=== PATIENT | male | born 1985 | race Caucasian/White ===

== ENCOUNTER → 2017-05-19 | Outpatient (CLI) | payer OTHER, BC ==
[~2017-05-19] MED LIST: NAPR-243 PO; TRM50T PO
--- NOTE | 2017-05-19 12:46 | Diagnostic Imaging Report ---
PROCEDURE: MRI right joint upper extremity without contrast. TECHNIQUE: A multiplanar/multisequence noncontrast enhanced MRI of the right upper extremity was accomplished. INDICATION: Posterior elbow pain. COMPARISON: There are no prior studies available for comparison. FINDINGS: Reportedly, the patient has pain along the posterior lateral aspect of the proximal radius and ulna. A marker was placed in the area of concern. There is no abnormal signal arising from the osseous structures or the musculature in this area to suggest an acute abnormality. There is perhaps slightly increased signal in the subcutaneous fat on the axial T2 fat-saturated series. This does suggest mild edema/inflammation. The triceps tendon and the biceps tendon are intact. On the coronal series, there is slightly increased signal within the common extensor tendon. This may be related to mild edema/inflammation. There is no clear evidence for a tear and the lateral ulnar collateral ligament appears to be intact. The ulnar collateral ligament and the common flexor tendon are unremarkable. There is no abnormal signal arising from the osseous structures to suggest bone edema or a fracture and there is no sign of a joint effusion. IMPRESSION: 1. There is no acute bony or muscular abnormality in the area of the patient's pain along the posterior lateral aspect of the elbow joint. 2. The small area of altered signal within the common extensor tendon does suggest mild edema/inflammation. The other major ligaments and tendons are intact. Dictated by: Dictated on workstation # [id number]
== END ==
LOC: RAD 08:46
PROVIDERS: ATTEND Nurse Practitioner Family
DX: M77.01 Medial epicondylitis, right elbow (principal); M77.11 Lateral epicondylitis, right elbow
CPT/HCPCS: 73221

== ENCOUNTER 2018-09-16 02:52 | Emergency (ER) | payer OTHER, BC ==
[~2018-09-16] VITALS: Ht 177.8 cm; Wt 88.5 kg
--- OUTSIDE RECORDS SUMMARY | 2018-09-16 02:58 | XMS REPORT ---
Author Author COLE SOLIS [facility] Address [address] [place] [address] Care Team Providers Care Copy Reader Name Role Phone IRMACOLE Unavailable PROBLEMS Type Condition ICD9-CM Code [id number] Code Onset Dates Condition Status SNOMED Code Problem Major depressive disorder, recurrent, moderate F33.1 Active 69928094 Problem Unspecified mood [affective] disorder F39 Active 62215265 Problem Bipolar II disorder F31.81 Active 69569552 Problem Generalized anxiety disorder F41.1 Active 65503202 Problem PTSD (post-traumatic stress disorder) F43.10 Active 98571796 Problem ADHD, predominantly inattentive type F90.0 Active 04340250 ALLERGIES No Information ENCOUNTERS Encounter Location Date Diagnosis [facility] [id number] [place] [address] Nov, [facility] [id number] [place] [address] Oct, Major depressive disorder, recurrent, moderate F33.1 ; PTSD (post- traumatic stress disorder) F43.10 and ADHD, predominantly inattentive type F90.0 [facility] [id number] [place] [address] Sep, Major depressive disorder, recurrent, moderate F33.1 ; PTSD (post- traumatic stress disorder) F43.10 and ADHD, predominantly inattentive type F90.0 [facility] [id number] [place] [address] Sep, [facility] [id number] [place] [address] Aug, Unspecified mood [affective] disorder F39 ; Posttraumatic stress disorder F43.10 and ADHD (attention deficit hyperactivity disorder), inattentive type F90.0 [facility] [address] [address] July, [facility] [id number] [place] [address] Oct, Posttraumatic stress disorder F43.10 ; ADHD, predominantly inattentive type F90.0 ; Major depressive disorder, recurrent episode, moderate F33.1 and Generalized anxiety disorder F41.1 [facility] [id number] [place] [address] Mar, Adjustment disorder with mixed anxiety and depressed mood F43.23 [facility] [id number] [place] [address] Feb, Bipolar II disorder F31.81 ; PTSD (post-traumatic stress disorder) F43.10 and ADHD, predominantly inattentive type F90.0 [facility] [id number] [place] [address] Feb, Anxiety F41.9 and Chronic post-traumatic stress disorder (PTSD) F43.12 [facility] [id number] [place] [address] Feb, Generalized anxiety disorder 300.02 and Major depressive disorder, recurrent episode, moderate 296.32 [facility] [address] [place] [address] May, [facility] [id number] [place] [address] May, [facility] [address] [place] [address] Apr, [facility] [id number] [place] [address] Apr, [facility] [address] [place] [address] 16 May, 2011 [facility] [id number] [place] [address] May, [facility] [address] [facility] [id number] [place] [address] May, [facility] [address] [facility] [id number] [address] Apr, IMMUNIZATIONS No Known Immunizations SOCIAL HISTORY Never Assessed REASON FOR VISIT Returned call PLAN OF CARE VITAL SIGNS MEDICATIONS Unknown Medications RESULTS No Results PROCEDURES No Known procedures INSTRUCTIONS MEDICATIONS ADMINISTERED No Known Medications MEDICAL (GENERAL) HISTORY Type Description Date Medical History Major depressive disorder, recurrent episode, unspecified Medical History Intermittent explosive disorder Surgical History RT elbow 07/18/2017 Hospitalization History surgeries Hospitalization History vasectomy 2015
--- OUTSIDE RECORDS SUMMARY | 2018-09-16 02:58 | XMS REPORT ---
Author Author [email or web address] Medical Staff Organization [facility] Address [address] [place], [place] [address] Phone [phone] Care Team Providers Care Chain Hooker Name Role Phone JUAN RODRIGUEZ MD PP [phone] Summary purpose TRANSITION OF CARE AUTO GENERATION Chief Complaint and Reason for Visit No authorized Reason for Visit (Admitting Diagnosis) is available for this visit . Problem list No authorized problems tracked for continuity of care are available for this vis it. Encounters No authorized problems tracked for encounter diagnoses are available for this vi sit. Medications No medications recorded for this patient visit Allergies, adverse reactions, alerts Allergen Category Ingredient Status Reaction Severity Onset No known drug allergies No known drug allergies No known drug allergies Confirmed or Verified Immunizations No immunizations recorded for this patient visit Relevant diagnostic tests and/or laboratory data No authorized results are available for this patient visit History of procedures No procedures recorded for this patient visit. Functional status No functional or cognitive status observations are available for this visit. Vital signs No authorized vital signs are available for this visit. Social history No Social History or smoking status observations were recorded for this visit. ( Unknown if ever smoked.) Treatment Plan No treatment plan text is available for this visit. Hospital discharge instructions No discharge instruction text is available for this visit.
--- OUTSIDE RECORDS SUMMARY | 2018-09-16 02:58 | XMS REPORT ---
Author Author COLE SOLIS [facility] Address [address] [place] [address] Care Team Providers Care Air Conditioning Coil Assembler Name Role Phone IRMACOLE Unavailable PROBLEMS Type Condition ICD9-CM Code [id number] Code Onset Dates Condition Status SNOMED Code Problem Major depressive disorder, recurrent, moderate F33.1 Active 58179646 Problem Unspecified mood [affective] disorder F39 Active 85103190 Problem Bipolar II disorder F31.81 Active 60497938 Problem Generalized anxiety disorder F41.1 Active 31364471 Problem PTSD (post-traumatic stress disorder) F43.10 Active 25767117 Problem ADHD, predominantly inattentive type F90.0 Active 12358317 ALLERGIES Substance Reaction Event Type Date Status lavender Unknown Non Drug Allergy Sep, Active ENCOUNTERS Encounter Location Date Diagnosis [facility] [id number] [place] [address] Nov, [facility] [id number] [place] [address] Oct, Major depressive disorder, recurrent, moderate F33.1 ; PTSD (post- traumatic stress disorder) F43.10 and ADHD, predominantly inattentive type F90.0 [facility] [address] [place] [address] Sep, Major depressive disorder, recurrent, moderate F33.1 ; PTSD (post- traumatic stress disorder) F43.10 and ADHD, predominantly inattentive type F90.0 [facility] [address] [place] [address] Sep, [facility] [address] [place] [address] Aug, Unspecified mood [affective] disorder F39 ; Posttraumatic stress disorder F43.10 and ADHD (attention deficit hyperactivity disorder), inattentive type F90.0 [facility] [address] [address] July, [facility] [id number] [place] [address] Oct, Posttraumatic stress disorder F43.10 ; ADHD, predominantly inattentive type F90.0 ; Major depressive disorder, recurrent episode, moderate F33.1 and Generalized anxiety disorder F41.1 [facility] [id number] [place] [address] 07 Mar, 2015 Adjustment disorder with mixed anxiety and depressed mood F43.23 [facility] [id number] [place] [address] 24 Feb, 2015 Bipolar II disorder F31.81 ; PTSD (post-traumatic stress disorder) F43.10 and ADHD, predominantly inattentive type F90.0 [place] [facility] [id number] [place] [address] Feb, Anxiety F41.9 and Chronic post-traumatic stress disorder (PTSD) F43.12 [facility] [id number] [place] [address] Feb, Generalized anxiety disorder 300.02 and Major depressive disorder, recurrent episode, moderate 296.32 [place] [address] [address] May, [facility] [id number] [place] [address] May, [facility] [address] [address] Apr, [facility] [id number] [place] [address] Apr, [facility] [address] [address] May, [facility] [id number] [place] [address] May, [facility] [address] [facility] [id number] [address] May, [facility] [address] [facility] [id number] [place] [address] Apr, IMMUNIZATIONS No Known Immunizations SOCIAL HISTORY Never Assessed REASON FOR VISIT intake-KIRK wright PLAN OF CARE Activity Details Follow Up 4 Weeks Reason: f/u VITAL SIGNS Weight 207.1 lbs 2017-09-11 Heart Rate 60 bpm 2017-09-11 Respiratory Rate 20 2017-09-11 Blood pressure systolic 100 mmHg 2017-09-11 Blood pressure diastolic 80 mmHg 2017-09-11 MEDICATIONS Medication Instructions Dosage Frequency Start Date End Date Duration Status Cyproheptadine HCl 4 MG Orally Once at bedtime 1 tablet Feb, Not-Taking Strattera 25 MG Orally Once a day for two weeks, then 1 tablet twice a day 1 capsule Sep, 30 day(s) Active Latuda 40 MG Orally Once a day with 350 kcal 1 tablet with food Feb, Not-Taking RESULTS No Results PROCEDURES No Known procedures INSTRUCTIONS MEDICATIONS ADMINISTERED No Known Medications MEDICAL (GENERAL) HISTORY Type Description Date Medical History Major depressive disorder, recurrent episode, unspecified Medical History Intermittent explosive disorder Surgical History RT elbow 07/18/2017 Hospitalization History surgeries Hospitalization History vasectomy 2014
--- OUTSIDE RECORDS SUMMARY | 2018-09-16 02:58 | XMS REPORT | Clinical Summary ---
Author Author [facility] Organization [facility] Address Unknown Phone Unavailable Care Team Providers Care Asset Coordinator Name Role Phone Shima Mccoy MD Unavailable Juan Jose Aguirre MD PCP Source Comments Some departments are not documenting in the electronic medical record. If you d o not see the information that you expected, contact Release of Information in [facility] [employer] [employer] Management department at [phone] for further assistan ce in locating additional records.[facility] Allergies No Known Allergies Medications End Date Status Medication Sig Dispensed Refills Start Date Active sertraline (ZOLOFT) 50 mg Take 50 mg by 0 tablet mouth daily. Active Problems Problem Noted Date Weakness 08/16/2013 Overview: Non physiologic weakness, some pain limited however strong concern for conversion disorder. Social History Date Tobacco Use Types Packs/Day Years Used Current Every Day Smoker Cigarettes 1.5 Smokeless Tobacco: Current User Drinks/Week oz/Week Comments Alcohol Use Yes Sex Assigned at Date Recorded Not on file Industry Job Start Date Occupation Not on file Not on file Not on file Travel End Travel History Travel Start No recent travel history available. Last Filed Vital Signs Reading Time Taken Comments Vital Sign 119/58 08/18/2013 3:57 PM CDT Blood Pressure 50 08/18/2013 3:57 PM CDT Pulse 36.8 C (98.2 F) 08/18/2013 3:57 PM CDT Temperature - - Respiratory Rate 98% 08/18/2013 3:57 PM CDT Oxygen Saturation - - Inhaled Oxygen Concentration 83.7 kg (184 lb 8.4 oz) 08/17/2013 6:48 AM CDT Weight 177.8 cm (5' 10") 08/16/2013 11:35 AM CDT Height 26.48 08/16/2013 11:35 AM CDT Body Mass Index Plan of Treatment Health Maintenance Due Date Last Done Comments PHYSICAL (COMPREHENSIVE) 09/02/1994 EXAM HIV SCREENING 09/02/2002 DTAP/TDAP VACCINES (1 - 09/02/2005 Tdap) INFLUENZA VACCINE 12/08/2018 Results Not on filefrom Last 3 Months Insurance Type Payer Benefit Subscriber ID Effective Phone Address Plan / Dates Group Indemnity [facility] xxxxxxxxx 2013-P CHOICE/CHO resent ICE PLUS Advance Directives Patient Salesperson Sheet Music Explanation Type Date Recorded Advance 08/16/2013 12:24 PM Directive/DPOA Date Inactivated Comments Code Status Date Activated 08/18/2013 9:20 PM Full Code 08/16/2013 11:37 AM Provider has discussed Code Status Yes w/Patient or Family?
--- OUTSIDE RECORDS SUMMARY | 2018-09-16 02:58 | XMS REPORT ---
Author Author IRMA COLE [facility] Address [address] [place] [address] Care Team Providers Care Agricultural Sciences Professor Name Role Phone IRMA, COLE Unavailable PROBLEMS Type Condition ICD9-CM Code [id number] Code Onset Dates Condition Status SNOMED Code Problem Major depressive disorder, recurrent, moderate F33.1 Active 89276600 Problem Unspecified mood [affective] disorder F39 Active 66370707 Problem Bipolar II disorder F31.81 Active 42821592 Problem Generalized anxiety disorder F41.1 Active 63983904 Problem PTSD (post-traumatic stress disorder) F43.10 Active 53351872 Problem ADHD, predominantly inattentive type F90.0 Active 13012685 ALLERGIES Substance Reaction Event Type Date Status lavender Unknown Non Drug Allergy Oct, Active ENCOUNTERS Encounter Location Date Diagnosis [facility] [address] [place] [address] Oct, Major depressive disorder, recurrent, moderate F33.1 ; PTSD (post- traumatic stress disorder) F43.10 and ADHD, predominantly inattentive type F90.0 [facility] [address] [place] [address] Sep, Major depressive disorder, recurrent, moderate F33.1 ; PTSD (post- traumatic stress disorder) F43.10 and ADHD, predominantly inattentive type F90.0 [facility] [address], [place] [address] Sep, [facility] [address] [place] [address] Aug, Unspecified mood [affective] disorder F39 ; Posttraumatic stress disorder F43.10 and ADHD (attention deficit hyperactivity disorder), inattentive type F90.0 [facility] [id number] [address] July, [facility] [address], [place] [address] Oct, Posttraumatic stress disorder F43.10 ; ADHD, predominantly inattentive type F90.0 ; Major depressive disorder, recurrent episode, moderate F33.1 and Generalized anxiety disorder F41.1 [facility] [id number] [place] [address] Mar, Adjustment disorder with mixed anxiety and depressed mood F43.23 [facility] [id number] [place] [address] Feb, Bipolar II disorder F31.81 ; PTSD (post-traumatic stress disorder) F43.10 and ADHD, predominantly inattentive type F90.0 [facility] [address], [place] [address] Feb, Anxiety F41.9 and Chronic post-traumatic stress disorder (PTSD) F43.12 [facility] [id number], [place] [address] Feb, Generalized anxiety disorder 300.02 and Major depressive disorder, recurrent episode, moderate 296.32 [facility] [address], [place] [address] May, [facility] [address], [place] [address] May, [facility] [id number] [address] Apr, [facility] [address], [place] [address] Apr, [facility] [address], [place] [address] May, [facility] [address], [place] [address] May, [facility] [id number] [address] May, [facility] [address] [facility] [id number] [place] [address] Apr, IMMUNIZATIONS No Known Immunizations SOCIAL HISTORY Never Assessed REASON FOR VISIT f/u KIRK Pardo PLAN OF CARE Activity Details Follow Up 4 Weeks Reason: f/u VITAL SIGNS Weight 208 lbs 2017-10-09 Heart Rate 72 bpm 2017-10-09 Respiratory Rate 18 2017-10-09 Blood pressure systolic 134 mmHg 2017-10-09 Blood pressure diastolic 64 mmHg 2017-10-09 MEDICATIONS Medication Instructions Dosage Frequency Start Date End Date Duration Status Wellbutrin XL 150 MG Orally Once a day 1 tablet in the morning 24h Oct, 30 day(s) Active Strattera 25 MG Orally Once a day for two weeks, then 1 tablet twice a day 1 capsule Sep, Active RESULTS No Results PROCEDURES No Known procedures INSTRUCTIONS MEDICATIONS ADMINISTERED No Known Medications MEDICAL (GENERAL) HISTORY Type Description Date Medical History Major depressive disorder, recurrent episode, unspecified Medical History Intermittent explosive disorder Surgical History RT elbow 07/18/2017 Hospitalization History surgeries Hospitalization History vasectomy 2014
--- OUTSIDE RECORDS SUMMARY | 2018-09-16 02:58 | XMS REPORT ---
Author Author ELKE CONROY Organization [facility] Address [address] [place] [address] Care Team Providers Care Nurse Emergency Room Name Role Phone ELKE CONROY Unavailable PROBLEMS Type Condition ICD9-CM Code [id number] Code Onset Dates Condition Status SNOMED Code Problem Major depressive disorder, recurrent, moderate F33.1 Active 54856139 Problem Unspecified mood [affective] disorder F39 Active 41495211 Problem Bipolar II disorder F31.81 Active 63580967 Problem Generalized anxiety disorder F41.1 Active 61286551 Problem PTSD (post-traumatic stress disorder) F43.10 Active 28296142 Problem ADHD, predominantly inattentive type F90.0 Active 14765336 ALLERGIES No Information ENCOUNTERS Encounter Location Date Diagnosis [facility] [address] [place] [address] Nov, [facility] [id number] [place] [address] Oct, Major depressive disorder, recurrent, moderate F33.1 ; PTSD (post- traumatic stress disorder) F43.10 and ADHD, predominantly inattentive type F90.0 [facility] [address] [place] [address] Sep, Major depressive disorder, recurrent, moderate F33.1 ; PTSD (post- traumatic stress disorder) F43.10 and ADHD, predominantly inattentive type F90.0 [facility] [id number] [place] [address] Sep, [facility] [id number] [place] [address] Aug, Unspecified mood [affective] disorder F39 ; Posttraumatic stress disorder F43.10 and ADHD (attention deficit hyperactivity disorder), inattentive type F90.0 [place] [address] [address] July, [facility] [id number] [place] [address] Oct, Posttraumatic stress disorder F43.10 ; ADHD, predominantly inattentive type F90.0 ; Major depressive disorder, recurrent episode, moderate F33.1 and Generalized anxiety disorder F41.1 [facility] [id number] [place] [address] Mar, Adjustment disorder with mixed anxiety and depressed mood F43.23 [facility] [id number] [place] [address] Feb, Bipolar II disorder F31.81 ; PTSD (post-traumatic stress disorder) F43.10 and ADHD, predominantly inattentive type F90.0 [place] [id number] [place] [address] Feb, Anxiety F41.9 and Chronic post-traumatic stress disorder (PTSD) F43.12 [facility] [id number] [place] [address] Feb, Generalized anxiety disorder 300.02 and Major depressive disorder, recurrent episode, moderate 296.32 [facility] [address] [place] [address] May, [facility] [id number] [place] [address] May, [facility] [id number] [place] [address] Apr, [facility] [id number] [place] [address] Apr, [facility] [id number] [place] [address] 16 May, 2011 [facility] [id number] [place] [address] May, [facility] [address] [facility] [id number] [place] [address] May, [facility] [address] [facility] [id number] [place] [address] Apr, IMMUNIZATIONS No Known Immunizations SOCIAL HISTORY Never Assessed REASON FOR VISIT intake PLAN OF CARE Activity Details Follow Up Next available Reason: VITAL SIGNS MEDICATIONS Unknown Medications RESULTS No Results PROCEDURES Procedure Date Ordered Result Body Site Psych diagnostic evaluation, established patient September 01, 2017 INSTRUCTIONS MEDICATIONS ADMINISTERED No Known Medications MEDICAL (GENERAL) HISTORY Type Description Date Medical History Major depressive disorder, recurrent episode, unspecified Medical History Intermittent explosive disorder Surgical History RT elbow 07/18/2017 Hospitalization History surgeries Hospitalization History vasectomy 2014
--- OUTSIDE RECORDS SUMMARY | 2018-09-16 02:58 | XMS REPORT ---
Author [facility] Organization [facility] Address [address], [place] [address] Phone [phone] Care Team Providers Care Windows Mobile Developer Name Role Phone JUAN RODRIGUEZ MD PP [phone] Summary purpose TRANSITION OF CARE AUTO GENERATION Chief Complaint and Reason for Visit Admit Diagnosis 1 OTHER INJURY OF OTHER SI Problem list No authorized problems tracked for [...] visit Relevant diagnostic tests and/or laboratory data RESULTS Routine Urinalysis 60-34-461459:05:00 Result Normal Range Units Color YELLOW Clarity Hazy Specific [place] 1.015 1.003-1.035 pH 7.0 4.5-8.0 Glucose NEGATIVE Bilirubin NEGATIVE Ketones NEGATIVE Protein NEGATIVE Urobilinogen 0.2 0-0.2 E.U./dL Nitrites NEGATIVE Blood NEGATIVE Leukocytes NEGATIVE WBCs No WBC's Seen RBCs No RBC's Seen. Squamous Epithelial No Squamous Epithelial Cells seen. Amorphous Crystals 3+ Body Fluid 14-93-586789:05:00 Result Normal Range Units pH 7.0 4.5-8.0 Radiology Results 80-26-534683:52:00 LUMBAR SPINE XRAY - 5V PACs Image DATE OF EXAM: Nov 24 2014 RAD 1050-LUMBAR SPINE XRAY-5 VIEW : RADIOLOGY REPORT DATE OF SERVICE: 11/24/14 HISTORY: Patient fell has back pain. LUMBAR SPINE 5 VIEWS 1117 HOURS The vertebral bodies, interspaces and posterior elements appear intact. No fracture or subluxation are seen. Pars interarticularis are maintained. Sacroiliac joints are normal. IMPRESSION: Negative study. DO SUDHIR Leonardo/nella 11/24/2014 11:49:00 / 11/24/2014 11:53:00 cc:JUAN RODRIGUEZ This document has been electronically Signed by: On: DATE OF EXAM: Nov 24 2014 RAD 1050-LUMBAR SPINE XRAY-5 VIEW : RADIOLOGY REPORT DATE OF SERVICE: 11/24/14 HISTORY: Patient fell has back pain. LUMBAR SPINE 5 VIEWS 1117 HOURS The vertebral bodies, interspaces and posterior elements appear intact. No fracture or subluxation are seen. Pars interarticularis are maintained. Sacroiliac joints are normal. IMPRESSION: Negative study. Stewart Apodaca DO [facility] 11/24/2014 11:49:00 / 11/24/2014 11:53:00 cc:JUAN RODRIGUEZ This document has been electronically Signed by: STEWART APODACA DO On: Nov 24 20142:52P Result Amended on 2014-11-24 at 14:52:35. Previous status was [place]. PELVIS XRAY - 1 VIEW PACs Image DATE OF EXAM: Nov 24 2014 RAD 1225-PELVIS XRAY-1 VIEW : RADIOLOGY REPORT DATE OF SERVICE: 11/24/14 HISTORY: Patient fell has pain. PELVIS ONE VIEW 1117 HOURS Bony pelvis is intact. Sacroiliac joints and hip joint spaces are normal. There is no fracture. The soft tissues are normal. IMPRESSION: Negative study. Stewart Apodaca DO [facility] 11/24/2014 11:49: / 11/24/2014 11:54:10 cc:JUAN RODRIGUEZ This document has been electronically Signed by: On: DATE OF EXAM: Nov 24 2014 RAD 1225-PELVIS XRAY-1 VIEW : RADIOLOGY REPORT DATE OF SERVICE: 11/24/14 HISTORY: Patient fell has pain. PELVIS ONE VIEW 1117 HOURS Bony pelvis is intact. Sacroiliac joints and hip joint spaces are normal. There is no fracture. The soft tissues are normal. IMPRESSION: Negative study. Stewart Apodaca DO [facility] 11/24/2014 11:49:11/24/2014 11:54:10 cc:JUAN RODRIGUEZ This document has been electronically Signed by: STEWART APODACA DO On: Nov 24 20142:52P Result Amended on 2014-11-24 at 14:52:37. Previous status was [place]. Thoracic Spine - 3 View PACs Image DATE OF EXAM: Nov 24 2014 RAD 0425-THORACIC SPINE-3 VIEW : RADIOLOGY REPORT DATE OF SERVICE: 11/24/14 HISTORY: Patient fell has back pain. THORACIC SPINE 3 VIEWS 1117 HOURS Vertebral bodies, interspaces and posterior elements appear intact. No fracture or subluxation are seen. Interspaces are normal. Pedicles are maintained. Proximal ribs appear normal. IMPRESSION: Negative study. Stewart Apodaca DO /mo 11/24/2014 11:49: / 11/24/2014 11:52:02 cc:JUAN RODRIGUEZ This document has been electronically Signed by: On: DATE OF EXAM: Nov 24 2014 RAD 0425-THORACIC SPINE-3 VIEW : RADIOLOGY REPORT DATE OF SERVICE: 11/24/14 HISTORY: Patient fell has back pain. THORACIC SPINE 3 VIEWS 1117 HOURS Vertebral bodies, interspaces and posterior elements appear intact. No fracture or subluxation are seen. Interspaces are normal. Pedicles are maintained. Proximal ribs appear normal. IMPRESSION: Negative study. Stewart Apodaca DO /mo 11/24/2014 11:49:00 / 11/24/2014 11:52:02 cc:JUAN RODRIGUEZ This document has been electronically Signed by: STEWART APODACA DO On: Nov 24 20142:52P Result Amended on 2014-11-24 at 14:52:33. Previous status was [place]. History of procedures Procedure Code Code Type Description Date Performed Performing Physician 33315 CPT-4 X-RAY EXAM OF THORACIC SPINE 11-24-2014 RAÚL FAIRCHILD 72441 CPT-4 X-RAY EXAM OF LOWER SPINE 11-24-2014 RAÚL FAIRCHILD 29561 CPT-4 X-RAY EXAM OF PELVIS 11-24-2014 RAÚL FAIRCHILD 35275 CPT-4 URINALYSIS, AUTO W/SCOPE 11-24-2014 RAÚL FAIRCHILD J1885 CPT-4 TORADOL SYR 30MG/ML 11-24-2014 RAÚL FAIRCHILD J2270 CPT-4 MORPHINE SULFATE INJECTION 11-24-2014 RAÚL FAIRCHILD J2360 CPT-4 ORPHENADRINE INJECTION 11-24-2014 RAÚL FAIRCHILD J2405 CPT-4 ONDANSETRON HCL INJECTION 11-24-2014 RAÚL FAIRCHILD 39977 CPT-4 EMERGENCY DEPT VISIT 11-24-2014 RAÚL FAIRCHILD 43039 CPT-4 EMERGENCY DEPT VISIT 11-24-2014 RAÚL FAIRCHILD 18024 CPT-4 THER/PROPH/DIAG INJ, IV PUSH 11-24-2014 RAÚL FAIRCHILD 93947 CPT-4 TX/PRO/DX INJ NEW DRUG ADDON 11-24-2014 RAÚL FAIRCHILD Functional status Functional Status Finding Observation Time Abdomen Appearance flat 22-30-752831:10 Abdomen soft 62-55-768949:10 Johnston no 05-32-268853:10 Urination normal 96-09-713121:10 Quality sym/unlabored :10 Cough absent 95-85-083517:10 Secretions no :10 Breath Sounds RUL clear :10 Breath Sounds RML clear :10 Breath Sounds RLL clear :10 Breath Sounds ANTONIO clear :10 Breath Sounds LLL clear 32-81-628365:10 Airway natural :10 Chest Tube no :10 Oxygen no :05 Temp >100.4 no :10 Temp <96.8 no :10 Chills with rigors no :10 HR > 90bpm no :10 Respirations > 20 no :10 Systolic <90 no :10 headache stiff neck no :10 IV Site Location R AC :05 IV Type peripheral 01-16-086632:10 IV Site Information discontinued :05 IV Site Felipe 18 57-81-971978:10 IV Site Appearance WNL 05-04-646406:10 IV Site Color clear :10 IV Site Patent yes :10 Dressing Type occlusive :10 Nursing Note SL dcd intact. DC inst given to pt with Rx for Ibuprofen, Hydrocodone, and Norflex. Pt verb understanding of inst. Pt requests to walk off unit in stable condition. :05 Vital signs Type Value Date Respiration Rate 18breaths per minute :05 Pulse 60beats per minute :05 Oxygen Saturation 97% :05 BP Systolic 106mmHg :05 BP Diastolic 73mmHg :05 Temperature 97.9F :05 Weight 160LB :05 Social history No Social History or smoking status observations were recorded for this visit. ( Unknown if ever smoked.) Treatment Plan No treatment plan text is available for this visit. Hospital discharge instructions Dismissal Condition fair Disposition on DC home DC Inst/Educ Give yes Med/Side Effects Rev yes PNE Vac None Flu Vac None Tetanus Vac 2012
--- OUTSIDE RECORDS SUMMARY | 2018-09-16 02:58 | XMS REPORT ---
Author [facility] Organization [facility] Address [address], [place] [address] Phone [phone] Care Team Providers Care Paper Bag Inspector Name Role Phone JUAN RODRIGUEZ MD PP [phone] Summary purpose TRANSITION OF CARE AUTO GENERATION [...] for this patient visit History of procedures Procedure Code Code Type Description Date Performed Performing Physician A0427 CPT-4 ALS1-EMERGENCY 11-24-2014 RAÚL FAIRCHILD A0425 CPT-4 GROUND MILEAGE 11-24-2014 RAÚL FAIRCHILD Functional status No functional or cognitive status [...]
--- OUTSIDE RECORDS SUMMARY | 2018-09-16 02:58 | XMS REPORT ---
Author [facility] Address [address], [place] [address] Phone [phone] Care Team Providers Care Medical Authorization Specialist Name Role Phone JUAN RODRIGUEZ MD PP [phone] Summary purpose TRANSITION OF CARE AUTO GENERATION [...] tests and/or laboratory data RESULTS Routine Urinalysis 45-99-693280:05:00 Result Normal Range Units Color YELLOW Clarity Hazy Specific [place] 1.015 1.003-1.035 pH 7.0 4.5-8.0 Glucose NEGATIVE Bilirubin NEGATIVE Ketones NEGATIVE Protein NEGATIVE Urobilinogen 0.2 0-0.2 E.U./dL Nitrites NEGATIVE Blood NEGATIVE Leukocytes NEGATIVE WBCs No WBC's Seen RBCs No RBC's Seen. Squamous Epithelial No Squamous Epithelial Cells seen. Amorphous Crystals 3+ Body Fluid 83-88-123862:05:00 Result Normal Range Units pH 7.0 4.5-8.0 Radiology Results 72-53-205062:52:00 LUMBAR SPINE XRAY - 5V PACs Image [...] normal. IMPRESSION: Negative study. Stewart Apodaca DO [facility] 11/24/2014 11:49:00 / 11/24/2014 11:53:00 cc:JUAN RODRIGUEZ [...] normal. IMPRESSION: Negative study. Stewart Apodaca DO [facility] 11/24/2014 11:49:00 / 11/24/2014 11:53:00 cc:JUAN RODRIGUEZ This document has been electronically Signed by: STEWART APODACA DO On: Nov 24 20142:52P Result Amended on 2014-11-24 at 14:52:35. Previous status was [place]. PELVIS XRAY - 1 VIEW PACs Image DATE OF EXAM: Nov 24 2014 RAD 1225-PELVIS XRAY-1 VIEW : RADIOLOGY REPORT DATE OF SERVICE: 11/24/14 HISTORY: Patient fell has pain. PELVIS ONE VIEW 1117 HOURS Bony pelvis is intact. Sacroiliac joints and hip joint spaces are normal. There is no fracture. The soft tissues are normal. IMPRESSION: Negative study. Stewart Apodaca DO [facility] 11/24/2014 11:49:00 / 11/24/2014 11:54:10 cc:JUAN RODRIGUEZ This document [...] normal. IMPRESSION: Negative study. Stewart Apodaca DO [facility] 11/24/2014 11:49:00 / 11/24/2014 11:54:10 cc:JUAN RODRIGUEZ This document has been electronically Signed by: STEWART APODACA DO On: Nov 24 20142:52P Result Amended on 2014-11-24 at 14:52:37. Previous status was [place]. Thoracic Spine - 3 View PACs Image [...] normal. IMPRESSION: Negative study. Stewart Apodaca DO /tx 11/24/2014 11:49: / 11/24/2014 11:52:02 cc:JUAN RODRIGUEZ [...] normal. IMPRESSION: Negative study. Stewart Apodaca DO /tx 11/24/2014 11:49:00 / 11/24/2014 11:52:02 cc:JUAN RODRIGUEZ This document has been electronically Signed by: STEWART APODACA DO On: Nov 24 20142:52P Result Amended on 2014-11-24 at 14:52:33. Previous status was [place]. History of procedures No procedures recorded for this patient visit. Functional status Functional Status Finding Observation Time Abdomen Appearance flat 14-81-491701:10 Abdomen soft 54-99-512334:10 Johnston no 24-24-083636:10 Urination normal 48-81-763215:10 Quality sym/unlabored 82-46-219459:10 Cough absent 43-81-782889:10 Secretions no 58-59-733891:10 Breath Sounds RUL clear 39-71-564533:10 Breath Sounds RML clear 28-94-242120:10 Breath Sounds RLL clear 36-51-950702:10 Breath Sounds ANTONIO clear 18-58-168087:10 Breath Sounds LLL clear 05-12-928553:10 Airway natural 25-81-707338:10 Chest Tube no 95-68-887268:10 Oxygen no 62-98-065957:05 Temp >100.4 no :10 Temp <96.8 no :10 Chills with rigors no :10 HR > 90bpm no :10 Respirations > 20 no :10 Systolic <90 no :10 headache stiff neck no :10 IV Site Location R AC :05 IV Type peripheral :10 IV Site Information discontinued :05 IV Site Felipe 18 72-12-666746:10 IV Site Appearance WNL :10 IV Site Color clear :10 IV Site [...]
--- OUTSIDE RECORDS SUMMARY | 2018-09-16 02:59 | XMS REPORT ---
Author Author YOAN BORREGO Organization [facility] Address [address] [place] [address] Care Team Providers Care Child Study Team Director Name Role Phone ELMO YOAN Unavailable PROBLEMS Type Condition ICD9-CM Code RNM44-IV Code Onset Dates Condition Status SNOMED Code Problem Bipolar II disorder F31.81 Active 79779430 Problem PTSD (post-traumatic stress disorder) F43.10 Active 96926739 Problem Generalized anxiety disorder F41.1 Active 21010314 Problem Major depressive disorder, recurrent episode, moderate F33.1 Active 674724127 Problem ADHD, predominantly inattentive type F90.0 Active 93720255 Problem Posttraumatic stress disorder F43.10 Active 60704954 ALLERGIES No Information ENCOUNTERS Encounter Location Date Diagnosis [place] [id number] [place] [phone] 14 Oct, 2016 Posttraumatic stress disorder F43.10 ; ADHD, predominantly inattentive type F90.0 ; Major depressive disorder, recurrent episode, moderate F33.1 and Generalized anxiety disorder F41.1 [place] [address] [place] [phone] 07 Mar, 2015 Adjustment disorder with mixed anxiety and depressed mood F43.23 [place] [id number] [place] [phone] 24 Feb, 2015 Bipolar II disorder F31.81 ; PTSD (post-traumatic stress disorder) F43.10 and ADHD, predominantly inattentive type F90.0 [place] [id number] [place] [phone] 24 Feb, 2015 Anxiety F41.9 and Chronic post-traumatic stress disorder (PTSD) F43.12 [place] [id number] [place] [phone] Feb, Generalized anxiety disorder 300.02 and Major depressive disorder, recurrent episode, moderate 296.32 [facility] [address], [place] [address] May, [facility] [address] [place] [address] May, [facility] [address], [place] [address] Apr, [facility] [id number] [place] [address] Apr, [facility] [address] [place] [phone] May, [facility] [address], [place] [address] May, [facility] [address] [place] [address] May, [facility] [address], [place] [address] Apr, IMMUNIZATIONS No Known Immunizations SOCIAL HISTORY Never Assessed REASON FOR VISIT f/u PLAN OF CARE Activity Details Follow Up 3 Weeks Reason:Anxiety, depression VITAL SIGNS MEDICATIONS Unknown Medications RESULTS No Results PROCEDURES Procedure Date Ordered Result Body Site Psychotherapy, patient &/family, 30 minutes, established patient Oct 21, 2016 INSTRUCTIONS MEDICATIONS ADMINISTERED No Known Medications MEDICAL (GENERAL) HISTORY Type Description Date Medical History Major depressive disorder, recurrent episode, unspecified Medical History Intermittent explosive disorder
--- OUTSIDE RECORDS SUMMARY | 2018-09-16 02:59 | XMS REPORT ---
Author Author YOAN BORREGO Organization [employer] Address Unknown Phone Unavailable Care Team Providers Care Administrative Nursing Supervisor Name Role Phone YOAN BORREGO CP Unavailable Allergies No Known Allergies Problems Problem Type Condition Code Onset Dates Condition Status Problem Generalized anxiety disorder 300.02 Active Problem Major depressive disorder, recurrent episode, moderate 296.32 Active Problem Posttraumatic stress disorder 309.81 Active Assessment Generalized anxiety disorder 300.02 Active Assessment Major depressive disorder, recurrent episode, moderate 296.32 Active Medications No Known Medications Procedures Procedure Coding System Code Date Psychotherapy, patient &/family, 45 minutes, established patient CPT-4 22225 Feb 20, 2015 Results No Known Results Summary Purpose [employer] Submission
--- OUTSIDE RECORDS SUMMARY | 2018-09-16 02:59 | XMS REPORT ---
Author Author YOAN BORREGO [facility] [employer] Address Unknown Phone Unavailable Care Team Providers Care Customs And Border Protection Officer Name Role Phone YOAN BORREGO CP Unavailable Allergies No Known Allergies Problems Problem Type Condition Code Onset Dates Condition Status Problem PTSD (post-traumatic stress disorder) F43.10 Active Problem ADHD, predominantly inattentive type F90.0 Active Problem Bipolar II disorder F31.81 Active Problem Major depressive disorder, recurrent episode, moderate 296.32 Active Assessment Adjustment disorder with mixed anxiety and depressed mood F43.23 Active Problem Posttraumatic stress disorder 309.81 Active Problem Generalized anxiety disorder 300.02 Active Medications No Known Medications Procedures Procedure Coding System Code Date Psychotherapy, patient &/family, 30 minutes, established patient CPT-4 84810 Mar 16, 2015 Results No Known Results Summary Purpose [employer] Submission
--- OUTSIDE RECORDS SUMMARY | 2018-09-16 02:59 | XMS REPORT ---
Author Author CAROLYNE SMITH [facility] Address [address] [place] [address] Care Team Providers Care Butt Maker Name Role Phone CAROLYNE SMITH Unavailable PROBLEMS Type Condition ICD9-CM Code AHP12-JL Code Onset Dates Condition Status SNOMED Code Problem Major depressive disorder, recurrent, moderate F33.1 Active 71949978 Problem Unspecified mood [affective] disorder F39 Active 52538718 Problem Bipolar II disorder F31.81 Active 94209749 Problem Generalized anxiety disorder F41.1 Active 83099535 Problem PTSD (post-traumatic stress disorder) F43.10 Active 51843749 Problem ADHD, predominantly inattentive type F90.0 Active 50117162 ALLERGIES No Information ENCOUNTERS Encounter Location Date Diagnosis [facility] [id number] [place] [phone] Nov, [facility] [id number] [place] [phone] Oct, Major depressive disorder, recurrent, moderate F33.1 ; PTSD (post- traumatic stress disorder) F43.10 and ADHD, predominantly inattentive type F90.0 [facility] [id number] [place] [address] Sep, Major depressive disorder, recurrent, moderate F33.1 ; PTSD (post- traumatic stress disorder) F43.10 and ADHD, predominantly inattentive type F90.0 [facility] [id number] [place] [address] Sep, [facility] [id number] [place] [address] Aug, Unspecified mood [affective] disorder F39 ; Posttraumatic stress disorder F43.10 and ADHD (attention deficit hyperactivity disorder), inattentive type F90.0 [facility] [address] [place] [address] July, [facility] [id number] [place] [address] Oct, Posttraumatic stress disorder F43.10 ; ADHD, predominantly inattentive type F90.0 ; Major depressive disorder, recurrent episode, moderate F33.1 and Generalized anxiety disorder F41.1 [facility] [id number] [place] [address] Mar, Adjustment disorder with mixed anxiety and depressed mood F43.23 [facility] [id number] [place] [phone] Feb, Bipolar II disorder F31.81 ; PTSD (post-traumatic stress disorder) F43.10 and ADHD, predominantly inattentive type F90.0 [place] [id number] [place] [address] Feb, Anxiety F41.9 and Chronic post-traumatic stress disorder (PTSD) F43.12 [facility] [id number] [place] [address] Feb, Generalized anxiety disorder 300.02 and Major depressive disorder, recurrent episode, moderate 296.32 [facility] [id number] [place] [phone] May, [facility] [id number] [place] [phone] May, [facility] [id number] [place] [phone] Apr, [facility] [id number] [place] [address] Apr, [facility] [address] [place] [address] May, [facility] [id number] [place] [phone] May, [facility] [address] [facility] [id number] [place] [address] May, [facility] [address] [facility] [id number] [address] Apr, IMMUNIZATIONS No Known Immunizations SOCIAL HISTORY Never Assessed REASON FOR VISIT Requests return call PLAN OF CARE VITAL SIGNS MEDICATIONS Unknown Medications RESULTS No Results PROCEDURES No Known procedures INSTRUCTIONS MEDICATIONS ADMINISTERED No Known Medications MEDICAL (GENERAL) HISTORY Type Description Date Medical History Major depressive disorder, recurrent episode, unspecified Medical History Intermittent explosive disorder Surgical History RT elbow 07/18/2017 Hospitalization History surgeries Hospitalization History vasectomy 2015
--- OUTSIDE RECORDS SUMMARY | 2018-09-16 02:59 | XMS REPORT ---
Author Author YOAN BORREGO Organization [employer] Address Unknown Phone Unavailable Care Team Providers Care Furnace Caretaker Name Role Phone YOAN BORREGO CP Unavailable Allergies No Known Allergies Problems Problem Type Condition Code Onset Dates Condition Status Assessment Chronic post-traumatic stress disorder (PTSD) F43.12 Active Problem PTSD (post-traumatic stress disorder) F43.10 Active Problem ADHD, predominantly inattentive type F90.0 Active Problem Bipolar II disorder F31.81 Active Problem Major depressive disorder, recurrent episode, moderate 296.32 Active Assessment Anxiety F41.9 Active Problem Posttraumatic stress disorder 309.81 Active Problem Generalized anxiety disorder 300.02 Active Medications No Known Medications Procedures Procedure Coding System Code Date Psychotherapy, patient &/family, 45 minutes, established patient CPT-4 53854 Mar 02, 2015 Results No Known Results Summary Purpose [employer] Submission
--- OUTSIDE RECORDS SUMMARY | 2018-09-16 02:59 | XMS REPORT ---
Author Author MYLES GUTIERREZ [employer] Address Unknown Phone Unavailable Care Team Providers Care Cafeteria Cook Name Role Phone MYLES GUTIERREZ CP Unavailable Allergies No Known Allergies Problems Problem Type Condition Code Onset Dates Condition Status Assessment PTSD (post-traumatic stress disorder) F43.10 Active Assessment ADHD, predominantly inattentive type F90.0 Active Problem PTSD (post-traumatic stress disorder) F43.10 Active Problem ADHD, predominantly inattentive type F90.0 Active Problem Bipolar II disorder F31.81 Active Problem Major depressive disorder, recurrent episode, moderate 296.32 Active Assessment Bipolar II disorder F31.81 Active Problem Posttraumatic stress disorder 309.81 Active Problem Generalized anxiety disorder 300.02 Active Medications Medication Code System Code Instructions Start Date End Date Status Dosage Latuda [facility] [address]-18 40 MG Orally Once a day with 350 kcal Mar 02, 2015 1 tablet with food Cyproheptadine HCl [facility] [address]-02 4 MG Orally Once at bedtime Mar 02, 2015 1 tablet Procedures Procedure Coding System Code Date Psychotherapy, patient &/family, with E&M, 30 minutes, established patient CPT-4 21485 Mar 02, 2015 MH Office Visit, Est Pt., Level 5 CPT-4 62810 Mar 02, 2015 Vital Signs Date/Time: Mar 02, 2015 Blood Pressure Systolic 132 mmHg Cardiac Monitoring Heart Rate 64 bpm Weight 208.5 lbs Blood Pressure Diastolic 78 mmHg Results No Known Results Summary Purpose [employer] Submission
[2018-09-16 03:13] LABS: BASOPHILS % (AUTO) 0 % (0-10); EOSINOPHILS # (AUTO) 0.4 10^3/uL (0.0-0.3); EOSINOPHILS % (AUTO) 4 % (0-10); HEMATOCRIT 44 % (40-54); HEMOGLOBIN 15.2 G/DL (13.3-17.7); LYMPHOCYTES # (AUTO) 4.1 X 10^3 (1.0-4.0); LYMPHOCYTES % (AUTO) 47 % (12-44); MEAN CORPUSCULAR HEMOGLOBIN 29 PG (25-34); MEAN CORPUSCULAR HGB CONC 35 G/DL (32-36); MEAN CORPUSCULAR VOLUME 84 FL (80-99); MEAN PLATELET VOLUME 9.4 FL (7.4-10.4); MONOCYTES # (AUTO) 0.6 X 10^3 (0.0-1.0); MONOCYTES % (AUTO) 7 % (0-12); NEUTROPHILS # (AUTO) 3.7 X 10^3 (1.8-7.8); NEUTROPHILS % (AUTO) 42 % (42-75); PLATELET COUNT 387 10^3/uL (130-400); RED CELL DISTRIBUTION WIDTH 12.6 % (10.0-14.5); WHITE BLOOD COUNT 8.8 10^3/uL (4.3-11.0)
[2018-09-16 03:29] LABS: BILIRUBIN,URINE NEGATIVE (NEGATIVE); CLARITY,URINE CLEAR; COLOR,URINE YELLOW; GLUCOSE, URINE (UA) NEGATIVE (NEGATIVE); KETONES,URINE NEGATIVE (NEGATIVE); LEUKOCYTE ESTERASE ,URINE NEGATIVE (NEGATIVE); NITRITE,URINE NEGATIVE (NEGATIVE); PH,URINE 6 (5-9); PROTEIN,URINE NEGATIVE (NEGATIVE); UROBILINOGEN,URINE NORMAL (NORMAL)
[2018-09-16 03:32] LABS: ALANINE AMINOTRANSFERASE 30 U/L (0-55); ALBUMIN 4.3 GM/DL (3.2-4.5); ALKALINE PHOSPHATASE 61 U/L (40-136); BILIRUBIN,TOTAL 0.4 MG/DL (0.1-1.0); BUN/CREATININE RATIO 11; CALCIUM 8.8 MG/DL (8.5-10.1); CARBON DIOXIDE 21 MMOL/L (21-32); CHLORIDE 105 MMOL/L (98-107); CREATININE SERUM 1.03 MG/DL (0.60-1.30); GFR ESTIMATED > 60; GLUCOSE 110 MG/DL (70-105); MAGNESIUM 2.2 MG/DL (1.8-2.4); POTASSIUM 3.4 MMOL/L (3.6-5.0); SODIUM 140 MMOL/L (135-145); TOTAL PROTEIN 7.2 GM/DL (6.4-8.2)
[2018-09-16 03:37] LABS: BACTERIA,URINE FEW /HPF; SQUAMOUS EPITHELIAL CELL,UR RARE /HPF; WBC,URINE RARE /HPF
--- NOTE | 2018-09-16 03:44 | NUR ---
[facility] CALLED FOR DRUG SCREEN AND EVALUATION.
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
[2018-09-16 04:26] VITALS: BP 118/89
== END 2018-09-16 04:25 | disposition home or self-care (01) ==
LOC: EDUNIT# 02:52 → ER 02:54
DX: R55 Syncope and collapse (principal); M62.830 Muscle spasm of back; G43.909 Migraine, unspecified, not intractable, without status migrainosus; F43.10 Post-traumatic stress disorder, unspecified; Z86.73 Personal history of transient ischemic attack (TIA), and cerebral infarction without residual deficits; X50.0XXA Overexertion from strenuous movement or load, initial encounter
CPT/HCPCS: 36415; 80053; 81000; 83735; 85025; 93005; 93041

== ENCOUNTER 2022-01-16 08:43 | Emergency (ER) | payer OTHER, BC ==
[~2022-01-16] VITALS: Ht 177 cm; Wt 92.0 kg
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
[2022-01-16] MEDS ORDERED: KETOROLAC 60 MG/2 ML VIAL IM ONE (09:15)
[2022-01-16] MEDS ORDERED: ORPHENADRINE 60 MG/2 ML (NORFLEX) AMP (ED ONLY) IM ONE (09:15)
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
[2022-01-16] MEDS ORDERED: METH-732 PO (10:41)
[2022-01-16] MEDS ORDERED: TRM50T PO (10:41)
[2022-01-16] MEDS ORDERED: PRED10TA22 PO (10:41)
[2022-01-16 10:50] VITALS: BP 130/76
== END 2022-01-16 10:52 | disposition home or self-care (01) ==
LOC: EDUNIT# 08:43 → ER 08:47
DX: M54.50 Low back pain, unspecified (principal); R20.2 Paresthesia of skin; M54.6 Pain in thoracic spine; V86.01XA Driver of ambulance or fire engine injured in traffic accident, initial encounter; Y92.410 Unspecified street and highway as the place of occurrence of the external cause
CPT/HCPCS: 72128; 72131

== ENCOUNTER 2022-04-05 13:45 | Outpatient (RCR) | payer OTHER ==
[~2022-04-05 13:45] MED LIST changes: +METH-732 PO; +PRED10TA22 PO
== END 2022-04-09 | disposition home or self-care (01) ==
PROVIDERS: ATTEND Nurse Practitioner Family
DX: S33.6XXD Sprain of sacroiliac joint, subsequent encounter (principal); X58.XXXD Exposure to other specified factors, subsequent encounter

== ENCOUNTER 2022-04-16 10:06 | Outpatient (RCR) | payer OTHER | END 2022-05-07 | disposition home or self-care (01) | PROVIDERS: ATTEND Nurse Practitioner Family | DX: S33.6XXD Sprain of sacroiliac joint, subsequent encounter (principal); X58.XXXD Exposure to other specified factors, subsequent encounter ==

== ENCOUNTER → 2022-09-04 | Outpatient (CLI) | payer BC ==
--- NOTE | 2022-09-04 18:03 | Diagnostic Imaging Report ---
INDICATION: Left knee pain COMPARISON: None available TECHNIQUE: Single radiograph of the bilateral knees and 2 radiographs of the left knee are obtained dated 09/04/2022. FINDINGS: Left: No acute fracture or dislocation. No destructive osseous process. Joint spaces are well-maintained. No significant osteophyte formation. No knee joint effusion. No suspicious radiopaque foreign body. The patella is well seated within the trochlea. Right: No acute fracture or dislocation. Joint spaces are well-maintained. IMPRESSION: Unremarkable examination Dictated by: Dictated on workstation # [id number]
== END ==
LOC: RAD 10:11
DX: M25.562 Pain in left knee (principal)
CPT/HCPCS: 73562